=== PATIENT | male | born 1980 | race Caucasian/White ===

== ENCOUNTER 2024-02-09 10:57 | Emergency (ER) | payer BC ==
[~2024-02-09] VITALS: Ht 175.3 cm; Wt 104.5 kg
[2024-02-09 11:02] VITALS: TEMP 98.4
[2024-02-09 11:29] LABS: BASO # 0.1 K/mm3 (0.0-0.2); BASO % 1.3 % (0.0-2.0); EOS # 0.1 K/mm3 (0.0-0.7); EOS % 2.2 % (0.0-4.0); GRAN # 3.3 K/mm3 (1.4-6.5); GRAN % 52.2 % (42.2-75.2); HEMATOCRIT 46.7 % (42.0-52.0); HEMOGLOBIN 16.1 g/dl (13.5-18.0); LYMPH # 2.1 K/mm3 (1.2-3.4); LYMPH % 33.1 % (20.0-51.0); MEAN CELL VOLUME 92 fl (80.0-100.0); MEAN CORPUSCULAR HEMOGLOBIN 32 pg (27-31); MEAN CORPUSCULAR HGB CONC 35 g/dl (33.0-37.0); MEAN PLATELET VOLUME 9.9 fl (7.4-10.4); MONO # 0.7 K/mm3 (0.1-0.6); MONO % 10.9 % (1.7-9.3); PLATELET COUNT 210 K/mm3 (130-400); RED BLOOD COUNT 5.07 M/mm3 (4.20-5.60); REDCELL DISTRIBUTION WIDTH-CV 12.3 % (11.5-14.5)
[2024-02-09 11:40] LABS: ALBUMIN 4.4 g/dL (3.5-5.0); BILIRUBIN,TOTAL 0.5 mg/dL (0.2-1.2); CALCIUM 10.2 mg/dL (8.4-10.2); CREATININE, serum 1.1 mg/dL (0.72-1.25); POTASSIUM 4.1 mEq/L (3.5-4.5); TOTAL PROTEIN 8.1 g/dl (6.2-8.1)
[2024-02-09 11:49] LABS: PROTHROMBIN TIME 10.6 SECONDS (9.7-12.8)
[2024-02-09 11:54] LABS: D-DIMER < 200.00 ng/mLDDu (200-230)
[2024-02-09 12:00] LABS: TROPONIN-I 0.011 ng/mL (0.00-0.033)
[2024-02-09] MEDS ORDERED: hydrOXYzine HCl 25 MG TAB PO ONE (12:00)
[2024-02-09] MEDS ORDERED: Famotidine 20 MG TAB PO ONE (13:30)
[2024-02-09] MEDS ORDERED: diphenhydrAMINE 50 MG/ML 1 ML VIAL IV ONE (13:30)
[2024-02-09] MEDS ORDERED: Mag/Al Hydrox/Simeth Susp 30 ML CUP PO ONE (13:30)
[2024-02-09] MEDS ORDERED: Acetaminophen 325 MG TAB PO ONE (13:30)
[2024-02-09] MEDS ORDERED: Ketorolac 30 MG/ML VIAL IV ONE (13:30)
[2024-02-09 15:13] VITALS: BP 145/93; PULSE 80
== END 2024-02-09 15:25 | disposition home or self-care (01) ==
LOC: COL.ER 10:57
PROVIDERS: Nurse Practitioner Primary Care
DX: R07.9 Chest pain, unspecified (principal); F17.210 Nicotine dependence, cigarettes, uncomplicated
CPT/HCPCS: J1200; J1885